=== PATIENT | female | born 1995 | race Caucasian/White ===

== ENCOUNTER 2019-09-02 14:36 | Outpatient (CLI) | payer MEDICARE, MEDICAID, SELFPAY ==
--- NOTE | 2019-09-02 | XR_ITS ---
WS: [id number] RIGHT HAND: 3 VIEW(S) TECHNIQUE: PA, oblique and lateral. HISTORY: HAND PAIN COMPARISON: None available. No acute fracture or dislocation. No soft tissue or bone abnormality. XR/XR hand RT min 3V* [id number] IMPRESSION: Normal RIGHT hand.
== END 2019-09-02 14:37 | disposition home or self-care (01) ==
LOC: RADOUTREAD 16:20
PROVIDERS: Family Provider Internal Medicine; PCP Internal Medicine; Visit Provider Nurse Practitioner
DX: M79.641 Pain in right hand (principal)

== ENCOUNTER → 2019-09-27 12:57 | Outpatient (BNVA) | payer MEDICARE, MEDICAID, SELFPAY | PROVIDERS: Family Provider Internal Medicine; PCP Internal Medicine; Visit Provider Nurse Practitioner Psychiatric/Mental Health | DX: F43.12 Post-traumatic stress disorder, chronic (principal); F90.2 Attention-deficit hyperactivity disorder, combined type; F70 Mild intellectual disabilities; F91.2 Conduct disorder, adolescent-onset type; N39.44 Nocturnal enuresis; Z86.59 Personal history of other mental and behavioral disorders | CPT/HCPCS: 99213 ==

== ENCOUNTER → 2019-11-22 08:15 | Outpatient (BNVA) | payer MEDICARE, MEDICAID, SELFPAY | PROVIDERS: Family Provider Internal Medicine; PCP Internal Medicine; Visit Provider Nurse Practitioner Psychiatric/Mental Health | DX: F43.12 Post-traumatic stress disorder, chronic (principal); F90.2 Attention-deficit hyperactivity disorder, combined type; F70 Mild intellectual disabilities; F91.2 Conduct disorder, adolescent-onset type; N39.44 Nocturnal enuresis; Z86.59 Personal history of other mental and behavioral disorders | CPT/HCPCS: 99213 ==

== ENCOUNTER → 2019-12-14 08:13 | Outpatient (BNVA) | payer MEDICARE, MEDICAID, SELFPAY | PROVIDERS: Family Provider Internal Medicine; PCP Internal Medicine; Visit Provider Nurse Practitioner Psychiatric/Mental Health | DX: F43.12 Post-traumatic stress disorder, chronic (principal); F90.2 Attention-deficit hyperactivity disorder, combined type; F70 Mild intellectual disabilities; F91.2 Conduct disorder, adolescent-onset type; N39.44 Nocturnal enuresis; Z86.59 Personal history of other mental and behavioral disorders | CPT/HCPCS: 99214 ==

== ENCOUNTER → 2020-01-04 08:28 | Outpatient (BNVA) | payer MEDICARE, MEDICAID, SELFPAY | PROVIDERS: Family Provider Internal Medicine; PCP Internal Medicine; Visit Provider Nurse Practitioner Psychiatric/Mental Health | DX: F43.12 Post-traumatic stress disorder, chronic (principal); F90.2 Attention-deficit hyperactivity disorder, combined type; F70 Mild intellectual disabilities; F91.2 Conduct disorder, adolescent-onset type; N39.44 Nocturnal enuresis; Z86.59 Personal history of other mental and behavioral disorders | CPT/HCPCS: 99214 ==

== ENCOUNTER → 2020-02-09 07:32 | Outpatient (BNVA) | payer MEDICARE, MEDICAID, SELFPAY | PROVIDERS: Family Provider Internal Medicine; PCP Internal Medicine; Visit Provider Nurse Practitioner Psychiatric/Mental Health | DX: F43.12 Post-traumatic stress disorder, chronic (principal); F90.2 Attention-deficit hyperactivity disorder, combined type; F70 Mild intellectual disabilities; F91.2 Conduct disorder, adolescent-onset type; N39.44 Nocturnal enuresis; Z86.59 Personal history of other mental and behavioral disorders | CPT/HCPCS: 99213 ==

== ENCOUNTER → 2020-03-15 07:35 | Outpatient (BNVA) | payer MEDICARE, MEDICAID, SELFPAY | PROVIDERS: Family Provider Internal Medicine; PCP Internal Medicine; Visit Provider Nurse Practitioner Psychiatric/Mental Health | DX: F43.12 Post-traumatic stress disorder, chronic (principal); F91.2 Conduct disorder, adolescent-onset type; F90.2 Attention-deficit hyperactivity disorder, combined type; F50.81 Binge eating disorder; F70 Mild intellectual disabilities; Z79.899 Other long term (current) drug therapy; N39.44 Nocturnal enuresis; Z86.59 Personal history of other mental and behavioral disorders | CPT/HCPCS: 99214 ==

== ENCOUNTER → 2020-03-16 08:25 | Outpatient (BNVA) | payer MEDICARE, MEDICAID, SELFPAY | PROVIDERS: Family Provider Internal Medicine; PCP Internal Medicine; Visit Provider Nurse Practitioner Psychiatric/Mental Health | DX: Z79.899 Other long term (current) drug therapy (principal) | CPT/HCPCS: 80053; 80061; 83036; 85025 ==

== ENCOUNTER → 2020-04-12 09:57 | Outpatient (BNVA) | payer MEDICARE, MEDICAID, SELFPAY | PROVIDERS: Family Provider Internal Medicine; PCP Internal Medicine; Visit Provider Nurse Practitioner Psychiatric/Mental Health | DX: F43.12 Post-traumatic stress disorder, chronic (principal); F50.81 Binge eating disorder; F91.2 Conduct disorder, adolescent-onset type; F90.2 Attention-deficit hyperactivity disorder, combined type; F70 Mild intellectual disabilities | CPT/HCPCS: 99214 ==

== ENCOUNTER → 2020-05-17 08:10 | Outpatient (BNVA) | payer MEDICARE, MEDICAID, SELFPAY | PROVIDERS: Family Provider Internal Medicine; PCP Internal Medicine; Visit Provider Nurse Practitioner Psychiatric/Mental Health | DX: F91.2 Conduct disorder, adolescent-onset type (principal); Z79.899 Other long term (current) drug therapy; F50.81 Binge eating disorder; F43.12 Post-traumatic stress disorder, chronic | CPT/HCPCS: 99214 ==

== ENCOUNTER → 2020-06-14 07:41 | Outpatient (BNVA) | payer MEDICARE, MEDICAID, SELFPAY | PROVIDERS: Family Provider Internal Medicine; PCP Internal Medicine; Visit Provider Nurse Practitioner Psychiatric/Mental Health | DX: F43.12 Post-traumatic stress disorder, chronic (principal); F91.2 Conduct disorder, adolescent-onset type; F50.81 Binge eating disorder; F90.2 Attention-deficit hyperactivity disorder, combined type; F70 Mild intellectual disabilities; Z79.899 Other long term (current) drug therapy; N39.44 Nocturnal enuresis; Z86.59 Personal history of other mental and behavioral disorders | CPT/HCPCS: 99214 ==

== ENCOUNTER → 2020-07-28 07:30 | Outpatient (BNVA) | payer MEDICARE, MEDICAID, SELFPAY | PROVIDERS: Family Provider Internal Medicine; PCP Internal Medicine; Visit Provider Nurse Practitioner Psychiatric/Mental Health | DX: F91.2 Conduct disorder, adolescent-onset type (principal); Z86.59 Personal history of other mental and behavioral disorders; F50.81 Binge eating disorder; F43.12 Post-traumatic stress disorder, chronic; F90.2 Attention-deficit hyperactivity disorder, combined type; F70 Mild intellectual disabilities; N39.44 Nocturnal enuresis | CPT/HCPCS: 99214 ==

== ENCOUNTER → 2020-09-07 10:54 | Outpatient (BNVA) | payer MEDICARE, MEDICAID, SELFPAY | PROVIDERS: Family Provider Internal Medicine; PCP Internal Medicine; Visit Provider Nurse Practitioner Psychiatric/Mental Health | DX: F43.12 Post-traumatic stress disorder, chronic (principal); F91.2 Conduct disorder, adolescent-onset type; Z86.59 Personal history of other mental and behavioral disorders; F50.81 Binge eating disorder; F90.2 Attention-deficit hyperactivity disorder, combined type; F70 Mild intellectual disabilities; N39.44 Nocturnal enuresis | CPT/HCPCS: 99214 ==

== ENCOUNTER → 2020-10-06 09:19 | Outpatient (BNVA) | payer MEDICARE, MEDICAID, SELFPAY | PROVIDERS: Family Provider Internal Medicine; PCP Internal Medicine; Visit Provider Nurse Practitioner Psychiatric/Mental Health | DX: F43.12 Post-traumatic stress disorder, chronic (principal); F91.2 Conduct disorder, adolescent-onset type; Z86.59 Personal history of other mental and behavioral disorders; F50.81 Binge eating disorder; F90.2 Attention-deficit hyperactivity disorder, combined type; F70 Mild intellectual disabilities; N39.44 Nocturnal enuresis | CPT/HCPCS: 99214 ==

== ENCOUNTER → 2020-11-07 08:02 | Outpatient (BNVA) | payer MEDICARE, MEDICAID, SELFPAY | PROVIDERS: Family Provider Internal Medicine; PCP Internal Medicine; Visit Provider Nurse Practitioner Psychiatric/Mental Health | DX: F43.12 Post-traumatic stress disorder, chronic (principal); F50.81 Binge eating disorder; F90.2 Attention-deficit hyperactivity disorder, combined type; F91.2 Conduct disorder, adolescent-onset type; Z86.59 Personal history of other mental and behavioral disorders; F70 Mild intellectual disabilities; N39.44 Nocturnal enuresis | CPT/HCPCS: 99214 ==

== ENCOUNTER → 2020-12-20 08:54 | Outpatient (BNVA) | payer MEDICARE, MEDICAID, SELFPAY | PROVIDERS: Family Provider Internal Medicine; PCP Internal Medicine; Visit Provider Nurse Practitioner Psychiatric/Mental Health | DX: F91.2 Conduct disorder, adolescent-onset type (principal); F43.12 Post-traumatic stress disorder, chronic; F90.2 Attention-deficit hyperactivity disorder, combined type; F50.81 Binge eating disorder; Z86.59 Personal history of other mental and behavioral disorders; F70 Mild intellectual disabilities; N39.44 Nocturnal enuresis | CPT/HCPCS: 99214 ==

== ENCOUNTER 2020-12-23 13:18 | Emergency (ER) | payer MEDICARE, MEDICAID, SELFPAY ==
[2020-12-23 13:32] VITALS: BP 139/83; PULSE 97; RESP 18; TEMP 37.2; O2SAT 97; BMI 56.4
[2020-12-23 13:52] VITALS: BP 221/136; PULSE 104; RESP 18; O2SAT 99
--- NOTE | 2020-12-23 14:07 | W.ED.GENADLT ---
HPI - General Adult General: Chief complaint: General Medical Stated complaint: high bp Time Seen by Provider: 12/23/20 14:02 Source: patient Mode of arrival: ambulatory Limitations: no limitations History of Present Illness: HPI narrative: 25-year-old female comes in today with concerns of elevated blood pressure. Patient is a resident of [facility] and it was noted that she had elevated blood pressure last night. Patient responds appropriately to questioning. Patient appears well. Patient is morbidly obese. Patient has history of psychiatric disorder. Patient states she has family history of blood pressure problems and heart disease. Patient reports some lightheadedness when she has bowel movements. Onset (ago): day(s) Review of Systems General: Reports: 10 or more systems reviewed and unremarkable except in HPI and below Card: Reports: other (High blood pressure) [facility] ED PFSH: Medical History (Updated 12/23/20 @ 15:57 by ALISIA Boothe) Attention deficit hyperactivity disorder (ADHD), predominantly hyperactive-impulsive or combined type Binge eating disorder Chronic post-traumatic stress disorder Conduct disorder, adolescent-onset type, moderate History of schizoaffective disorder Mild intellectual disabilities Nocturnal enuresis Social History (Updated 09/27/19 @ 13:40 by Kaya Alonzo RN) Smoking and tobacco status: former smoker Physical Exam Const: COMMON NORMALS: no acute distress and patient oriented x3 GENERAL APPEARANCE: cooperative HENMT: COMMON NORMALS: normocephalic and Normal external nose present HEAD & SCALP: normal to inspection and normocephalic NOSE: Normal external nose present MOUTH: Normal oral and palatal mucosa present Eye: GENERAL EYE: appearance normal, both eyes and all related structures Neck/C-Spine: COMMON NORMALS: full ROM Chest: COMMONS NORMALS: normal inspection of the chest Resp: COMMON NORMALS: normal respiratory effort EFFORT & INSPECTION: Yes able to speak in complete sentences Cardio: COMMON NORMALS: regular rate and regular rhythm RATE: regular rate RHYTHM: regular rhythm GI: COMMON NORMALS: non-tender Back/Pelvis: COMMON NORMALS: thoracic and lumbar spine normal to inspection Extremity: COMMON NORMALS: normal to inspection Neuro: COMMON NORMALS: patient oriented x3 and moves all extremities Psych: COMMON NORMALS: mental status grossly normal and cooperative Skin: COMMON NORMALS: no rashes or lesions noted GENERAL SKIN EXAM: no rashes or lesions noted Course Vital Signs: Vital signs: Vital Signs Temperature 98.9 F 12/23/20 13:32 Pulse Rate 89 12/23/20 14:27 Respiratory Rate 18 12/23/20 13:52 Blood Pressure 208/124 12/23/20 14:27 Pulse Oximetry 99 12/23/20 13:52 MDM - General Adult MDM Narrative: Medical decision making narrative: Patient comes in today for complaints of elevated blood pressure. Patient denies any other significant abnormalities. Blood pressure was high as 220s systolic. Respirations were even lungs were clear to auscultation. No edema was noted in the extremities. Differential diagnosis includes but not limited to ACS, CHF, uncontrolled hypertension, hypertensive emergency. Laboratory values are all unremarkable except for some mild elevation on the BNP. Chest x-ray was normal. EKG was normal. Reviewed exam with patient with recommendations for treatment. Patient was medicated with clonidine 0.1 mg and labetalol 100 mg in the ER both by mouth with better control of blood pressure to a with systolic of 163. We will start patient on Prinzide 06/05-1/2 mg with recommendations to follow-up with primary care in 1 week. Patient and caregiver both reported understanding. Lab Data: Labs: Lab Results 12/23/20 12/23/20 12/23/20 Range/Units 14:29 14:29 14:29 WBC 10.0 (4.0-10.0) 10^3/ uL RBC 4.71 (4.1-5.3) 10^6/u L Hgb 14.2 (11.5-15.3) g/dL Hct 43.8 (37.0-47.0) % MCV 93.0 (81-99) fL MCH 30.1 (28.0-34.0) pg MCHC 32.4 (30.0-36.0) g/dL RDW 14.5 (12.1-15.1) % Plt Count 338 (130-400) 10^3/c mm MPV 10.8 H (7.4-10.4) fL Neut % (Auto) 71.7 % Lymph % (Auto) 20.3 % Martin % (Auto) 5.4 % Eos % (Auto) 1.8 % Baso % (Auto) 0.5 % Neut # (Auto) 7.13 (1.8-7.7) 10^3/u L Lymph # (Auto) 2.0 (0.8-4.8) 10^3/u L Martin # (Auto) 0.5 (0.2-0.9) 10^3/u L Eos # (Auto) 0.2 (0.0-0.8) 10^3/u L Baso # (Auto) 0.1 (0.0-0.1) 10^3/u L Nucleated RBC % (a uto) 0 % Nucleated RBCs # 0.0 /100WBC Sodium 141 (136-145) mmol/L Potassium 3.9 (3.5-5.1) mmol/L Chloride 110 H (98-107) mmol/L Carbon Dioxide 18 L (22-29) mmol/L Anion Gap 16.9 (5-19) BUN 11 (6-20) mg/dL Creatinine 0.5 (0.5-0.9) mg/dL GFR Calculation 148.0 H (90-130) mL/min Glucose 86 (65-115) mg/dL Calculated Osmolal ity 291 (285-295) mOsm/k g Calcium 8.6 (8.5-10.5) mg/dL Total Bilirubin 0.2 (0.15-1.2) mg/dL AST 17 (0-32) U/L ALT 20 (0-33) U/L Alkaline Phosphata se 104 (35-105) IU/L Troponin T Gen 5 n g/L 6 (0-10) ng/L NT-Pro-B Natriuret Pep 147 H (0-125) pg/mL Total Protein 7.3 (6.6-8.7) g/dL Albumin 4.0 (3.5-5.2) g/dL Globulin 3.3 (1.3-4.6) g/dL Urine Color (Yellow) Urine Appearance (CLEAR) Urine pH (5-7) Ur Specific Gravit y (1.005-1.030) Urine Protein (Negative) Urine Glucose (UA) (Normal) Urine Ketones (Negative) Urine Blood (Negative) Urine Nitrate (Negative) Urine Bilirubin (Negative) Urine Urobilinogen (Negative) mg/dL Ur Leukocyte Mary ase (Negative) Urine RBC (0-2) /hpf Urine WBC (0-5) /hpf Ur Squamous Epith Cells (0-5) /hpf Amorphous Sediment Urine Bacteria (NONE) /hpf 12/23/20 Range/Units 14:44 WBC (4.0-10.0) 10^3/ uL RBC (4.1-5.3) 10^6/u L Hgb (11.5-15.3) g/dL Hct (37.0-47.0) % MCV (81-99) fL MCH (28.0-34.0) pg MCHC (30.0-36.0) g/dL RDW (12.1-15.1) % Plt Count (130-400) 10^3/c mm MPV (7.4-10.4) fL Neut % (Auto) % Lymph % (Auto) % Martin % (Auto) % Eos % (Auto) % Baso % (Auto) % Neut # (Auto) (1.8-7.7) 10^3/u L Lymph # (Auto) (0.8-4.8) 10^3/u L Martin # (Auto) (0.2-0.9) 10^3/u L Eos # (Auto) (0.0-0.8) 10^3/u L Baso # (Auto) (0.0-0.1) 10^3/u L Nucleated RBC % (a uto) % Nucleated RBCs # /100WBC Sodium (136-145) mmol/L Potassium (3.5-5.1) mmol/L Chloride (98-107) mmol/L Carbon Dioxide (22-29) mmol/L Anion Gap (5-19) BUN (6-20) mg/dL Creatinine (0.5-0.9) mg/dL GFR Calculation (90-130) mL/min Glucose (65-115) mg/dL Calculated Osmolal ity (285-295) mOsm/k g Calcium (8.5-10.5) mg/dL Total Bilirubin (0.15-1.2) mg/dL AST (0-32) U/L ALT (0-33) U/L Alkaline Phosphata se (35-105) IU/L Troponin T Gen 5 n g/L (0-10) ng/L NT-Pro-B Natriuret Pep (0-125) pg/mL Total Protein (6.6-8.7) g/dL Albumin (3.5-5.2) g/dL Globulin (1.3-4.6) g/dL Urine Color Yellow (Yellow) Urine Appearance Clear (CLEAR) Urine pH 5 (5-7) Ur Specific Gravit y 1.020 (1.005-1.030) Urine Protein Neg (Negative) Urine Glucose (UA) Norm (Normal) Urine Ketones Negative (Negative) Urine Blood Neg (Negative) Urine Nitrate Negative (Negative) Urine Bilirubin Neg (Negative) Urine Urobilinogen Norm (Negative) mg/dL Ur Leukocyte Mary ase Trace H (Negative) Urine RBC None (0-2) /hpf Urine WBC 5-10 H (0-5) /hpf Ur Squamous Epith Cells 5-10 H (0-5) /hpf Amorphous Sediment Not Reportable Urine Bacteria 1+ H (NONE) /hpf EKG Data^: EKG 1: Attestation: I personally reviewed and interpreted this EKG as follows: (1505, EKG shows normal sinus rhythm with a regular rate at 94 bpm, no ectopy, no ST elevation, no prior EKG is available for comparison.) Computer generated interpretation: Chest X-Ray 12/23/20 14:15 IMPRESSION: No acute findings. Discharge Plan Discharge Patient Disposition: Home Clinical Impression: Hypertension, uncontrolled Condition: Stable Prescriptions: New lisinopril-hydrochlorothiazide 10-12.5 mg tablet 1 tab PO DAILY Qty: 30 RF: 0 No Action bismuth subsalicylate [Pepto-Bismol] 262 mg/15 mL suspension 262 mg PO Q30M PRN (Reason: STOMACH ISSUES) RF: 0 acetaminophen [Tylenol Extra Strength] 500 mg tablet 500 mg PO QID PRN (Reason: Pain) RF: 0 cetirizine [Zyrtec] 10 mg tablet 10 mg PO DAILY PRN (Reason: ALLERGY ISSUES) RF: 0 lactulose 10 gram/15 mL (15 mL) solution 10 gm PO BID PRN (Reason: STOMACH ISSUES) RF: 0 levothyroxine [Synthroid] 112 mcg tablet 112 mcg PO DAILY@0700 RF: 0 clindamycin phosphate 1 % gel See Rx Instructions .ROUTE .COMPLEX RF: 0 Colace 100 mg Capsule 100 mg PO BID PRN (Reason: Constipation) RF: 0 fluocinonide 0.05 % solution See Rx Instructions .ROUTE .COMPLEX RF: 0 multivitamin 1 tab PO DAILY@0800 RF: 0 Prozac 40 mg capsule 40 mg PO DAILY@0800 RF: 0 desmopressin 0.2 mg tablet 0.4 mg PO BEDTIME@2100 RF: 0 Seroquel 100 mg tablet 100 mg PO BEDTIME@2100 RF: 0 Topamax 100 mg tablet 100 mg PO BEDTIME@2100 RF: 0 Discharge Orders: Discharge ED (Routine); Ordered 12/23/20 Ordered By: Cameron Gay Referrals: Leonardo Dietrich DO [Primary Care Provider] - Discharge Diet: Usual diet Discharge Activity: Increase activity as tolerated Patient Instructions: Hypertension (ED), Opioid Safety Activity Restrictions/Additional Instructions: Home and rest. Activity as tolerated. Take medication as directed. Follow-up with primary care in 1 week for recheck. Return to the ED for new concerns. Coding Level of Care Code ED Hand Method Lasting Machine Operator for Cong Fwvamsi Exam Comprehensive
--- NOTE | 2020-12-23 14:15 | ECG_ITS ---
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
--- NOTE | 2020-12-23 14:15 | XRR_ITS ---
PROCEDURE INFORMATION: Exam: XR Chest Exam date and time: 12/23/2020 2:17 PM Age: 25 years old Clinical indication: Chest pain; Type not specified; Additional info: Chest pressure, elevated blood pressure TECHNIQUE: Imaging protocol: XR of the chest. Views: 1 view. COMPARISON: No relevant prior studies available. FINDINGS: Lungs: Unremarkable. No consolidation. Pleural spaces: Unremarkable. No pleural effusion. No pneumothorax. Heart/Mediastinum: Unremarkable. No cardiomegaly. Bones/joints: No acute findings. XR/XR chest 1V portable [id number] IMPRESSION: No acute findings.
[2020-12-23] MEDS: cloNIDine 0.1 mg Tablet PO (14:25)
[2020-12-23 14:27] VITALS: BP 208/124; PULSE 89
[2020-12-23 14:57] LABS: Basophils # 0.1 10^3/uL (0.0-0.1); Basophils % 0.5 %; Eosinophils # 0.2 10^3/uL (0.0-0.8); Eosinophils % 1.8 %; Hematocrit 43.8 % (37.0-47.0); Hemoglobin 14.2 g/dL (11.5-15.3); Lymphocytes % 20.3 %; Mean Corpuscular HGB Conc 32.4 g/dL (30.0-36.0); Mean Corpuscular Hemoglobin 30.1 pg (28.0-34.0); Mean Platelet Volume 10.8 fL (7.4-10.4); Monocytes # 0.5 10^3/uL (0.2-0.9); Monocytes % 5.4 %; Neutrophils # 7.13 10^3/uL (1.8-7.7); Neutrophils % 71.7 %; Nucleated Red Blood Cells % 0 %; Platelet Count 338 10^3/cmm (130-400); Red Blood Count 4.71 10^6/uL (4.1-5.3); Red Cell Distribution Width 14.5 % (12.1-15.1)
[2020-12-23] MEDS: labetalol 200 mg Tablet 100 MG PO (14:58)
[2020-12-23 15:23] LABS: Add Urine Microscopic? YES; Bilirubin Urine Neg (Negative); Blood Urine Neg (Negative); Glucose Urine UA Norm (Normal); Ketones Urine Negative (Negative); Leukocyte Esterase Urine Trace (Negative); Nitrate Urine Negative (Negative); Protein Urine Neg (Negative); Urine Appearance Clear (CLEAR); Urine Color Yellow (Yellow); Urobilinogen Urine Norm (Negative); pH Urine 5 (5-7)
[2020-12-23 15:24] LABS: Add Urine Culture? No; Bacteria Urine 1+ /hpf
[2020-12-23 15:26] LABS: Troponin T (5th) Once 6 ng/L (0-10)
[2020-12-23 15:33] LABS: Alanine Aminotransferase 20 U/L (0-33); Alkaline Phosphatase 104 IU/L (35-105); Aspartate Amino Transferase 17 U/L (0-32); Blood Urea Nitrogen 11 mg/dL (6-20); Calcium 8.6 mg/dL (8.5-10.5); Carbon Dioxide 18 mmol/L (22-29); Chloride 110 mmol/L (98-107); Globulin 3.3 g/dL (1.3-4.6); Glucose 86 mg/dL (65-115); NT Pro B Type Natriuretic Pept 147 pg/mL (0-125); Osmolality Calculated 291 mOsm/kg (285-295); Sodium 141 mmol/L (136-145); Total Bilirubin 0.2 mg/dL (0.15-1.2); Total Protein 7.3 g/dL (6.6-8.7)
[2020-12-23 15:41] LABS: Anion Gap 16.9 (5-19); Potassium 3.9 mmol/L (3.5-5.1)
[2020-12-23] MEDS: lisinopril 10 mg Tablet PO (16:33)
[2020-12-23] MEDS: hydroCHLOROthiazide 25 mg Tablet 12.5 MG PO (16:33)
[2020-12-23 16:35] VITALS: BP 163/106; PULSE 90; RESP 16; O2SAT 96
== END 2020-12-23 16:38 | disposition home or self-care (01) ==
PROVIDERS: Emergency Provider Nurse Practitioner Family; PCP Internal Medicine
DX: I10 Essential (primary) hypertension (principal); Z87.891 Personal history of nicotine dependence
CPT/HCPCS: 36415; 71045; 80053; 81001; 83880; 84484; 85025; 93005; 99283

== ENCOUNTER 2020-12-25 15:38 | Emergency (ER) | payer MEDICARE, MEDICAID, SELFPAY ==
[2020-12-25 15:40] VITALS: BP 195/101; PULSE 121; RESP 18; O2SAT 99; BMI 56.4
--- NOTE | 2020-12-25 16:02 | ECG_ITS ---
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 Measurements Intervals [place] Rate: 121 P: 31 MT: 116 QRS: 56 QRSD: 87 T: 50 QT: 338 QTc: 481 Interpretive Statements SINUS TACHYCARDIA WITH SHORT MT INTERVAL NONSPECIFIC T-WAVE ABNORMALITY ABNORMAL RHYTHM ECG Compared to ECG 12/23/2020 14:55:34 Short MT interval now present T-wave abnormality now present Sinus rhythm no longer present Electronically Signed On 12-27-2020 8:00:12 CDT by Antione Wu M.D. [id number]
--- NOTE | 2020-12-25 16:02 | XRR_ITS ---
PROCEDURE INFORMATION: Exam: XR Chest Exam date and time: 12/25/2020 4:12 PM Age: 25 years old Clinical indication: Cough and dyspnea; Additional info: Dyspnea/cough TECHNIQUE: Imaging protocol: XR of the chest. Views: 1 view. COMPARISON: CR XR chest 1V portable [id number] 12/23/2020 2:37 PM FINDINGS: Lungs: Unremarkable. No consolidation. Pleural spaces: Unremarkable. No pleural effusion. No pneumothorax. Heart/Mediastinum: Unremarkable. No cardiomegaly. Bones/joints: No acute abnormality. XR/XR chest 1V portable [id number] IMPRESSION: No acute findings.
--- NOTE | 2020-12-25 16:10 | W.ED.GENADLT ---
HPI - General Adult General: Chief complaint: General Medical Stated complaint: ELEVATED BP Time Seen by Provider: 12/25/20 15:56 History of Present Illness: HPI narrative: 25 yo female who present to the ER with complaints of elevated BP. Pt was seen here several daysa ago and discharged home with oral antihypertensives. She has been taking them regularly,. SHe is also complaining of sore throat. She not had any fever denies any shortness of breath chest or abdominal pain or rash. Onset (ago): day(s) Severity: mild Relieving factors: none Exacerbating factors: none Associated symptoms: Reports headache(s) and vomiting; Deny confusion, cough, diaphoresis, decreased appetite, dyspnea, fevers/chills, malaise, nausea, rash, palpitations, seizures, short of breath, syncope, weakness or other Treatments prior to arrival: none Review of Systems Const: Denies: malaise or diaphoresis ENMT: Reports: throat pain; Denies: ear or mastoid pain, nasal discharge or nasal congestion Card: Denies: palpitations or syncope Resp: Denies: dyspnea GI: Reports: vomiting; Denies: nausea : Denies: flank pain, difficulty voiding, dysuria, urinary frequency or urinary urgency Skin/Breast: Denies: rash Neuro: Reports: headache(s); Denies: confusion PFSH ED PFSH: Medical History Attention deficit hyperactivity disorder (ADHD), predominantly hyperactive-impulsive or combined type Binge eating disorder Chronic post-traumatic stress disorder Conduct disorder, adolescent-onset type, moderate History of schizoaffective disorder Mild intellectual disabilities Nocturnal enuresis Social History Smoking and tobacco status: former smoker Physical Exam Const: COMMON NORMALS: no acute distress GENERAL APPEARANCE: cooperative and comfortable ORIENTATION/CONSCIOUSNESS: Yes awake, Yes oriented to person, Yes oriented to place and Yes oriented to time HENMT: COMMON NORMALS: normocephalic, atraumatic and hearing grossly normal bilaterally HEAD & SCALP: normocephalic and atraumatic Neck/C-Spine: COMMON NORMALS: no JVD Resp: COMMON NORMALS: normal respiratory effort, No retractions, No use of accessory muscles and clear to auscultation bilaterally AUSCULTATION: clear to auscultation bilaterally Cardio: COMMON NORMALS: no JVD, regular rate, regular rhythm and No murmurs present (Cardio) RATE: regular rate RHYTHM: regular rhythm GI: COMMON NORMALS: Soft to palpation and No hepatosplenomegaly present AUSCULTATION: Yes normoactive bowel sounds PALPATION: Yes Soft to palpation, No Tenderness to palpation present (GI), No Guarding due to palpation present (GI) and Yes No hepatosplenomegaly present Extremity: COMMON NORMALS: normal to inspection, capillary refill normal, no clubbing, cyanosis or edema, no calf tenderness and no pedal edema Neuro: SENSORIUM/ORIENTATION: Yes oriented to person, Yes oriented to place and Yes oriented to time Skin: COMMON NORMALS: no rashes or lesions noted GENERAL SKIN EXAM: no rashes or lesions noted Course Vital Signs: Vital signs: Vital Signs Temperature 98 F 12/25/20 19:09 Pulse Rate 101 H 12/25/20 19:09 Respiratory Rate 20 H 12/25/20 19:09 Blood Pressure 150/80 12/25/20 19:09 Pulse Oximetry 96 12/25/20 19:09 MDM - General Adult MDM Narrative: Medical decision making narrative: No erythema of the throat rapid strep test negative. Her white count is elevated. Suspect it is a viral upper respiratory infection. She did not have any nausea or vomiting while here. We will go and send her home with adjustments for antihypertensives as below follow-up with primary care within the week. Lab Data: Labs: Lab Results 12/25/20 12/25/20 12/25/20 Range/Units 17:07 17:07 18:16 WBC 15.7 H (4.0-10.0) 10^3/ uL RBC 4.44 (4.1-5.3) 10^6/u L Hgb 13.3 (11.5-15.3) g/dL Hct 42.0 (37.0-47.0) % MCV 94.6 (81-99) fL MCH 30.0 (28.0-34.0) pg MCHC 31.7 (30.0-36.0) g/dL RDW 14.7 (12.1-15.1) % Plt Count 365 (130-400) 10^3/c mm MPV 10.0 (7.4-10.4) fL Neut % (Auto) 87.8 % Lymph % (Auto) 5.8 % [place] % (Auto) 5.3 % Eos % (Auto) 0.4 % Baso % (Auto) 0.3 % Neut # (Auto) 13.81 H (1.8-7.7) 10^3/u L Lymph # (Auto) 0.9 (0.8-4.8) 10^3/u L [place] # (Auto) 0.8 (0.2-0.9) 10^3/u L Eos # (Auto) 0.1 (0.0-0.8) 10^3/u L Baso # (Auto) 0.1 (0.0-0.1) 10^3/u L Nucleated RBC % (a uto) 0 % Nucleated RBCs # 0.0 /100WBC Sodium 137 (136-145) mmol/L Potassium 3.7 (3.5-5.1) mmol/L Chloride 106 (98-107) mmol/L Carbon Dioxide 18 L (22-29) mmol/L Anion Gap 16.7 (5-19) BUN 6 (6-20) mg/dL Creatinine 0.5 (0.5-0.9) mg/dL GFR Calculation 148.0 H (90-130) mL/min Glucose 84 (65-115) mg/dL Calculated Osmolal ity 281 L (285-295) mOsm/k g Calcium 8.4 L (8.5-10.5) mg/dL Magnesium 1.9 (1.7-2.3) mg/dL Total Bilirubin 0.3 (0.15-1.2) mg/dL AST 17 (0-32) U/L ALT 21 (0-33) U/L Alkaline Phosphata se 99 (35-105) IU/L Total Protein 7.2 (6.6-8.7) g/dL Albumin 3.7 (3.5-5.2) g/dL Globulin 3.5 (1.3-4.6) g/dL Group A Strep Rapi d Negative (Negative) Discharge Plan Discharge Patient Disposition: Home Clinical Impression: HTN (hypertension), Viral pharyngitis Condition: Stable Prescriptions: New amlodipine 10 mg tablet 10 mg PO DAILY Qty: 30 RF: 0 Changed lisinopril-hydrochlorothiazide 10-12.5 mg tablet 1 tab PO BID Qty: 0 RF: 0 No Action bismuth subsalicylate [Pepto-Bismol] 262 mg/15 mL suspension 262 mg PO DAILY PRN (Reason: UPSET STOMACH) RF: 0 acetaminophen [Tylenol Extra Strength] 500 mg tablet 500 mg PO Q6H PRN (Reason: Pain) RF: 0 cetirizine [Zyrtec] 10 mg tablet 10 mg PO DAILY PRN (Reason: Allergy Symptoms) RF: 0 lactulose 10 gram/15 mL (15 mL) solution 30 ml PO DAILY PRN (Reason: Constipation) RF: 0 levothyroxine [Synthroid] 112 mcg tablet 112 mcg PO DAILY@0700 RF: 0 clindamycin phosphate 1 % gel See Rx Instructions .ROUTE .COMPLEX RF: 0 docusate sodium [Colace] 100 mg Capsule 100 mg PO BID@08,20 RF: 0 fluocinonide 0.05 % solution See Rx Instructions .ROUTE .COMPLEX RF: 0 fluoxetine [Prozac] 40 mg capsule 40 mg PO DAILY@0800 RF: 0 desmopressin 0.2 mg tablet 0.4 mg PO BEDTIME@2100 RF: 0 quetiapine [Seroquel] 100 mg tablet 100 mg PO BEDTIME@2100 RF: 0 topiramate [Topamax] 100 mg tablet 100 mg PO BEDTIME@2100 RF: 0 multivitamin Tablet 1 tab PO DAILY@08 RF: 0 ibuprofen 800 mg Tablet 800 mg PO Q6H PRN (Reason: Pain) RF: 0 medroxyprogesterone 150 mg/mL suspension 150 mg IM Q90D RF: 0 Tessalon Perles 100 mg capsule 100 mg PO TID PRN (Reason: cough) Qty: 14 RF: 0 Discharge Orders: Discharge ED (Routine); Ordered 12/25/20 Ordered By: Keith Mares Referrals: Rama Moore FNP [Primary Care Provider] - Patient Instructions: Opioid Safety Coding Level of Care Code ED Sales Vice President for Cong Coffman
[2020-12-25] MEDS: amlodipine 10 mg Tablet PO (16:47)
[2020-12-25] MEDS: metoprolol tartrate 25 mg Tablet PO (16:48)
[2020-12-25] MEDS: metoprolol tartrate 1 mg/1 mL SDV 5 mL 5 MG IV (17:13)
[2020-12-25 17:14] LABS: Basophils # 0.1 10^3/uL (0.0-0.1); Basophils % 0.3 %; Eosinophils # 0.1 10^3/uL (0.0-0.8); Eosinophils % 0.4 %; Hemoglobin 13.3 g/dL (11.5-15.3); Lymphocytes # 0.9 10^3/uL (0.8-4.8); Lymphocytes % 5.8 %; Mean Corpuscular HGB Conc 31.7 g/dL (30.0-36.0); Mean Corpuscular Volume 94.6 fL (81-99); Monocytes # 0.8 10^3/uL (0.2-0.9); Monocytes % 5.3 %; Neutrophils # 13.81 10^3/uL (1.8-7.7); Neutrophils % 87.8 %; Nucleated Red Blood Cells % 0 %; Platelet Count 365 10^3/cmm (130-400); Red Blood Count 4.44 10^6/uL (4.1-5.3); Red Cell Distribution Width 14.7 % (12.1-15.1); White Blood Count 15.7 10^3/uL (4.0-10.0)
[2020-12-25 17:31] LABS: Alanine Aminotransferase 21 U/L (0-33); Albumin Level 3.7 g/dL (3.5-5.2); Alkaline Phosphatase 99 IU/L (35-105); Aspartate Amino Transferase 17 U/L (0-32); Blood Urea Nitrogen 6 mg/dL (6-20); Calcium 8.4 mg/dL (8.5-10.5); Carbon Dioxide 18 mmol/L (22-29); Chloride 106 mmol/L (98-107); Globulin 3.5 g/dL (1.3-4.6); Glucose 84 mg/dL (65-115); Magnesium 1.9 mg/dL (1.7-2.3); Osmolality Calculated 281 mOsm/kg (285-295); Sodium 137 mmol/L (136-145); Total Bilirubin 0.3 mg/dL (0.15-1.2); Total Protein 7.2 g/dL (6.6-8.7)
[2020-12-25 17:32] LABS: Anion Gap 16.7 (5-19); Potassium 3.7 mmol/L (3.5-5.1)
[2020-12-25 18:47] LABS: Rapid Strep A Test Negative (Negative)
[2020-12-25 19:09] VITALS: BP 150/80; PULSE 101; RESP 20; TEMP 36.6; O2SAT 96
== END 2020-12-25 19:12 | disposition home or self-care (01) ==
PROVIDERS: Emergency Provider Family Medicine; PCP Nurse Practitioner Family
DX: I10 Essential (primary) hypertension (principal); J02.8 Acute pharyngitis due to other specified organisms; Z87.891 Personal history of nicotine dependence
CPT/HCPCS: 71045; 80053; 83735; 85025; 87081; 87880; 93005; 96374; 99284; J3490

== ENCOUNTER 2020-12-31 21:36 | Emergency (ER) | payer MEDICARE, MEDICAID, SELFPAY ==
[2020-12-31 21:38] VITALS: BP 180/91; PULSE 101; RESP 18; O2SAT 98; BMI 55.5
--- NOTE | 2020-12-31 21:55 | XRR_ITS ---
PROCEDURE INFORMATION: Exam: XR Chest Exam date and time: 12/31/2020 11:04 PM Age: 25 years old Clinical indication: Cough; Chest pain; Additional info: Cough x 1.5 weeks TECHNIQUE: Imaging protocol: XR of the chest. Views: 1 view. COMPARISON: CR XR chest 1V portable [id number] 12/25/2020 5:40 PM FINDINGS: Lungs: No consolidation. Pleural spaces: Unremarkable. No pleural effusion. No pneumothorax. Heart/Mediastinum: No significant cardiomegaly. Bones/joints: No acute finding. XR/XR chest 1V portable [id number] IMPRESSION: No acute cardiopulmonary finding.
--- NOTE | 2020-12-31 21:55 | W.ED.URI ---
HPI - URI/Sore Throat General: Chief Complaint: Upper Respiratory Infection Stated Complaint: chest pain Time Seen by Provider: 12/31/20 21:52 History of Present Illness: HPI Narrative: Patient arrives via ambulance with complaint of sinus congestion and pain and cough. Patient is presently on antibiotics. MD elicited complaint: cough, sore throat, nasal congestion and sinus pain Onset (ago): day(s) Consistency: constant and progressively worsening Severity: moderate Able to tolerate fluids by mouth: Yes Exacerbating factors: nothing Relieving factors: nothing Associated symptoms: Reports nasal congestion and sinus pain; Deny abdominal pain, chills, chest pain, fever(s), headache(s), nausea or vomiting Review of Systems Const: Denies: fever(s), chills or body aches Eyes: Denies: change in vision or blurry vision ENMT: Reports: throat pain, nasal congestion and sinus pain Card: Denies: chest pain or dyspnea on exertion Resp: Reports: non-productive cough, chest congestion and other (Hurts to take in deep breath); Denies: dyspnea or productive cough GI: Denies: abdominal pain, nausea or vomiting Musc: Denies: extremity pain Skin/Breast: Denies: rash Neuro: Denies: headache(s) Psych: Denies: anxiety or depression Baron/Lymph: Denies: easy bruising PFSH ED PFSH: Medical History (Updated 12/31/20 @ 00:01 by ) Attention deficit hyperactivity disorder (ADHD), predominantly hyperactive-impulsive or combined type Binge eating disorder Chronic post-traumatic stress disorder Conduct disorder, adolescent-onset type, moderate History of schizoaffective disorder Mild intellectual disabilities Nocturnal enuresis Social History (Updated 09/27/19 @ 13:40 by Kaya Alonzo, BECKY) Smoking and tobacco status: former smoker Physical Exam Const: COMMON NORMALS: no acute distress, average body habitus and patient oriented x3 HENMT: COMMON NORMALS: normocephalic HEAD & SCALP: normal to inspection and normocephalic FACE & SINUS: normal facial exam Eye: COMMON NORMALS: conjunctivae normal GENERAL EYE: appearance normal, both eyes and all related structures CONJUNCTIVA: Yes conjunctivae normal Neck/C-Spine: COMMON NORMALS: no JVD Chest: COMMONS NORMALS: normal inspection of the chest Resp: COMMON NORMALS: normal respiratory effort, No retractions (Barky cough) and clear to auscultation bilaterally AUSCULTATION: clear to auscultation bilaterally Cardio: COMMON NORMALS: no JVD, regular rate and regular rhythm RATE: regular rate RHYTHM: regular rhythm GI: COMMON NORMALS: Normal to inspection, nondistended, normoactive bowel sounds present Extremity: COMMON NORMALS: normal to inspection and full ROM Neuro: COMMON NORMALS: patient oriented x3 Course Vital Signs: Vital signs: Vital Signs Pulse Rate 101 H 12/31/20 21:38 Respiratory Rate 18 12/31/20 21:38 Blood Pressure 180/91 12/31/20 21:38 Pulse Oximetry 98 12/31/20 21:38 Discharge Plan Discharge Prescriptions: No Action bismuth subsalicylate [Pepto-Bismol] 262 mg/15 mL suspension 262 mg PO DAILY PRN (Reason: UPSET STOMACH) RF: 0 acetaminophen [Tylenol Extra Strength] 500 mg tablet 500 mg PO Q6H PRN (Reason: Pain) RF: 0 cetirizine [Zyrtec] 10 mg tablet 10 mg PO DAILY PRN (Reason: Allergy Symptoms) RF: 0 lactulose 10 gram/15 mL (15 mL) solution 30 ml PO DAILY PRN (Reason: Constipation) RF: 0 levothyroxine [Synthroid] 112 mcg tablet 112 mcg PO DAILY@0700 RF: 0 clindamycin phosphate 1 % gel See Rx Instructions .ROUTE .COMPLEX RF: 0 docusate sodium [Colace] 100 mg Capsule 100 mg PO BID@08,20 RF: 0 fluocinonide 0.05 % solution See Rx Instructions .ROUTE .COMPLEX RF: 0 fluoxetine [Prozac] 40 mg capsule 40 mg PO DAILY@0800 RF: 0 desmopressin 0.2 mg tablet 0.4 mg PO BEDTIME@2100 RF: 0 quetiapine [Seroquel] 100 mg tablet 100 mg PO BEDTIME@2100 RF: 0 topiramate [Topamax] 100 mg tablet 100 mg PO BEDTIME@2100 RF: 0 multivitamin Tablet 1 tab PO DAILY@08 RF: 0 ibuprofen 800 mg Tablet 800 mg PO Q6H PRN (Reason: Pain) RF: 0 medroxyprogesterone 150 mg/mL suspension 150 mg IM Q90D RF: 0 amlodipine 10 mg tablet 10 mg PO DAILY Qty: 30 RF: 0 lisinopril-hydrochlorothiazide 10-12.5 mg tablet 1 tab PO BID Qty: 0 RF: 0 Coding Level of Care Code ED Image Processing Engineer for Cong Coffman
[2020-12-31 22:06] VITALS: BP 158/92; PULSE 98; RESP 17; O2SAT 98
[2020-12-31] MEDS: benzonatate 100 mg Capsule 200 MG PO (22:09)
[2020-12-31] MEDS: methylPREDNISolone (DEPO) 40 mg/mL INJ 1 mL IM (22:24)
[2020-12-31 23:15] VITALS: BP 141/95; PULSE 100; RESP 18; TEMP 36.7; O2SAT 97
== END 2020-12-31 23:21 | disposition home or self-care (01) ==
PROVIDERS: Emergency Provider Nurse Practitioner Family; PCP Nurse Practitioner Family
DX: R05 Cough (principal); Z87.891 Personal history of nicotine dependence
CPT/HCPCS: 71045; 96372; 99283; J1030

== ENCOUNTER → 2021-02-14 08:35 | Outpatient (BNVA) | payer MEDICARE, MEDICAID, SELFPAY | PROVIDERS: PCP Nurse Practitioner Family; Visit Provider Nurse Practitioner Psychiatric/Mental Health | DX: F91.2 Conduct disorder, adolescent-onset type (principal); Z86.59 Personal history of other mental and behavioral disorders; F50.81 Binge eating disorder; F43.12 Post-traumatic stress disorder, chronic; F90.2 Attention-deficit hyperactivity disorder, combined type; F70 Mild intellectual disabilities; N39.44 Nocturnal enuresis | CPT/HCPCS: 99214 ==

== ENCOUNTER 2021-03-13 16:18 | Emergency (ER) | payer MEDICARE, MEDICAID, SELFPAY ==
[2021-03-13 16:35] VITALS: BP 145/78; PULSE 108; RESP 18; TEMP 38.1; O2SAT 95; BMI 54.8
--- NOTE | 2021-03-13 17:18 | ED_ITS ---
HPI - SOB/Dyspnea General: Chief Complaint: Shortness of Breath/Dyspnea Stated Complaint: COVID +, N/V,COUGH Time Seen by Provider: 03/13/21 17:18 History of Present Illness: HPI Narrative: 25-year-old female comes in today with complaints of cough and congestion for 8 days. Patient states that she has been unable to eat anything since of last week. Patient reports that she has a persistent cough. Patient has used some benzonatate capsules with minimal relief. Patient reports nausea and poor oral intake. Patient is morbidly obese. Patient also has a history of hypertension which she takes amlodipine. Patient tested positive for COVID-19 on March 06 at outside clinic. MD elicited complaint: cough and pain with inspiration Onset (ago): day(s) Context: recent illness Timing: intermittent Review of Systems General: Reports: 10 or more systems reviewed and unremarkable except in HPI and below Resp: Reports: dyspnea and productive cough PFSH ED PFSH: Medical History Attention deficit hyperactivity disorder (ADHD), predominantly hyperactive- impulsive or combined type Binge eating disorder Chronic post-traumatic stress disorder Conduct disorder, adolescent-onset type, moderate History of schizoaffective disorder Mild intellectual disabilities Nocturnal enuresis Social History Smoking and tobacco status: former smoker Physical Exam Const: COMMON NORMALS: no acute distress and patient oriented x3 GENERAL APPEARANCE: cooperative HENMT: COMMON NORMALS: normocephalic and Normal external nose present HEAD & SCALP: normal to inspection and normocephalic NOSE: Normal external nose present MOUTH: Normal oral and palatal mucosa present Eye: GENERAL EYE: appearance normal, both eyes and all related structures Neck/C-Spine: COMMON NORMALS: full ROM Lymph: LYMPHATIC: no lymphadenopathy noted Chest: COMMONS NORMALS: normal inspection of the chest Resp: COMMON NORMALS: normal respiratory effort EFFORT & INSPECTION: Yes able to speak in complete sentences AUSCULTATION: diminished lung sounds Cardio: COMMON NORMALS: regular rate and regular rhythm RATE: regular rate RHYTHM: regular rhythm GI: COMMON NORMALS: non-tender : COMMON NORMALS: Yes no CVA tenderness BLADDER/KIDNEY EXAM: Yes no CVA tenderness Back/Pelvis: COMMON NORMALS: no CVA tenderness and thoracic and lumbar spine normal to inspection Extremity: COMMON NORMALS: normal to inspection Neuro: COMMON NORMALS: patient oriented x3 and moves all extremities Psych: COMMON NORMALS: mental status grossly normal and cooperative Skin: COMMON NORMALS: no rashes or lesions noted GENERAL SKIN EXAM: no rashes or lesions noted Course Vital Signs: Vital signs: Vital Signs Temperature 100.2 F H 03/13/21 18:12 Pulse Rate 126 H 03/13/21 20:20 Respiratory Rate 22 H 03/13/21 20:15 Blood Pressure 132/75 03/13/21 18:12 Pulse Oximetry 96 03/13/21 20:15 MDM - SOB/Dyspnea MDM Narrative: Medical decision making narrative: 25-year-old female comes in today with complaints of cough and congestion with occasional episodes of emesis. Patient appears mildly unwell but not toxic. Lung sounds are decreased in the bases. Patient is morbidly obese. Vital signs showed a mild increase in pulse rate and a temperature of 100.2. Chest x-ray had some bilateral lower field infiltrates. Patient's pulse oxygen was 96% on room air. Believe patient probably has COVID-19 pneumonia as reported by a positive Covid test on the . Patient was recommended to return for monoclonal antibodies. Patient was also given a dose of dexamethasone and started on albuterol inhaler. Encourage patient drink plenty of fluids and follow-up with primary care for further instructions or return to the ER for worsening symptoms. Discharge Plan Discharge Patient Disposition: Home Clinical Impression: Pneumonia due to 2019-nCoV Condition: Stable Prescriptions: New albuterol sulfate 90 mcg/actuation HFA aerosol inhaler 2 inh inhalation Q4H PRN (Reason: shortness of breath or wheezing) Qty: 8.5 RF: 0 dexamethasone 6 mg tablet 6 mg PO DAILY Qty: 5 RF: 0 ondansetron 4 mg tablet,disintegrating 4 mg PO Q8H PRN (Reason: nausea and vomiting) Qty: 7 RF: 0 No Action fluoxetine [Prozac] 40 mg capsule 40 mg PO QAM Qty: 90 RF: 2 quetiapine [Seroquel] 100 mg tablet 100 mg PO .bedtime Qty: 90 RF: 2 topiramate [Topamax] 100 mg tablet 100 mg PO .9 pm Qty: 90 RF: 2 desmopressin 0.2 mg tablet 0.4 mg PO .9 pm Qty: 180 RF: 2 bismuth subsalicylate [Pepto-Bismol] 262 mg/15 mL suspension 262 mg PO DAILY PRN (Reason: UPSET STOMACH) RF: 0 acetaminophen [Tylenol Extra Strength] 500 mg tablet 500 mg PO Q6H PRN (Reason: Pain) RF: 0 cetirizine [Zyrtec] 10 mg tablet 10 mg PO DAILY PRN (Reason: Allergy Symptoms) RF: 0 lactulose 10 gram/15 mL (15 mL) solution 30 ml PO DAILY PRN (Reason: Constipation) RF: 0 levothyroxine [Synthroid] 112 mcg tablet 112 mcg PO DAILY@0700 RF: 0 clindamycin phosphate 1 % gel See Rx Instructions .ROUTE .COMPLEX RF: 0 docusate sodium [Colace] 100 mg Capsule 100 mg PO BID@08,20 RF: 0 fluocinonide 0.05 % solution See Rx Instructions .ROUTE .COMPLEX RF: 0 multivitamin Tablet 1 tab PO DAILY@08 RF: 0 ibuprofen 800 mg Tablet 800 mg PO Q6H PRN (Reason: Pain) RF: 0 medroxyprogesterone 150 mg/mL suspension 150 mg IM Q90D RF: 0 amlodipine 10 mg tablet 10 mg PO DAILY Qty: 30 RF: 0 lisinopril-hydrochlorothiazide 10-12.5 mg tablet 1 tab PO BID Qty: 0 RF: 0 Tessalon Perles 100 mg capsule 100 mg PO TID PRN (Reason: cough) Qty: 14 RF: 0 Discharge Orders: Discharge ED (Routine); Ordered 03/13/21 Ordered By: Cameron Gay Referrals: Rama Moore FNP [Primary Care Provider] - Discharge Diet: Usual diet Discharge Activity: Increase activity as tolerated Patient Instructions: Viral Pneumonia (ED), Opioid Safety Activity Restrictions/Additional Instructions: Drink plenty of fluids. Use acetaminophen and ibuprofen for pain and fever. Activity as tolerated. Take dexamethasone tablets daily for the next 5 days. Use albuterol inhaler 2 puffs every 4 hours as needed for shortness of breath and cough and congestion. Monitor oxygen level with pulse oximetry. If oxygen level gets below 90% and does not recover with movement, deep breaths or worsens you should be reevaluated in the emergency department. Follow-up with primary care as needed. Return to the emergency department for new concerns. 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
--- NOTE | 2021-03-13 17:19 | XRR_ITS ---
PROCEDURE INFORMATION: Exam: XR Chest Exam date and time: 03/13/2021 5:19 PM Age: 25 years old Clinical indication: Cough and dyspnea and shortness of breath and other: N/v; Patient HX: Ex smoker, SOB, cough, n/v, covid + since 03/06/2021; Additional info: Short of breath TECHNIQUE: Imaging protocol: XR of the chest. Views: 1 view. Total images: 1 COMPARISON: CR XR chest 1V portable [id number] 12/31/2020 10:54 PM FINDINGS: Lungs: Potential very subtle focus of ground-glass interstitial lung disease right mid lung which could reflect active interstitial pneumonitis. Pleural spaces: Unremarkable. No pleural effusion. No pneumothorax. Heart/Mediastinum: Unremarkable. No cardiomegaly. Bones/joints: Unremarkable. Other findings: Obesity. XR/XR chest 1V portable [id number] IMPRESSION: Potential very subtle focus of ground-glass interstitial lung disease right mid lung which could reflect active interstitial pneumonitis.
[2021-03-13 18:12] VITALS: BP 132/75; PULSE 111; RESP 20; TEMP 37.9; O2SAT 94
[2021-03-13] MEDS: ondansetron 4 MG Tablet PO (18:12)
[2021-03-13] MEDS: dexamethasone 10 mg/mL INJ IM (18:12)
[2021-03-13] MEDS: promethazine 25 mg/mL SDV 1 mL IM (20:10)
[2021-03-13 20:15] VITALS: PULSE 124; RESP 22; O2SAT 96
[2021-03-13] MEDS: albuterol 8 gm MDI 2 PUFF INHALATION (20:15)
[2021-03-13 20:20] VITALS: PULSE 126
[2021-03-13 20:40] VITALS: BP 138/80; PULSE 120; RESP 20; O2SAT 96
--- NOTE | 2021-03-15 10:06 | DCPLANNER ---
mail manager had order to schedule the monoclonal antibody infusion. mail manager faxed order to centralized scheduling so that it could be scheduled.
== END 2021-03-13 20:41 | disposition home or self-care (01) ==
PROVIDERS: Emergency Provider Nurse Practitioner Family; PCP Nurse Practitioner Family
DX: U07.1 COVID-19 (principal); J12.82 Pneumonia due to coronavirus disease 2019; I10 Essential (primary) hypertension; E66.01 Morbid (severe) obesity due to excess calories; Z68.43 Body mass index [BMI] 50.0-59.9, adult; Z87.891 Personal history of nicotine dependence
CPT/HCPCS: 71045; 94640; 96372; 99283; J1100; J2550; J3535; Q0162

== ENCOUNTER → 2021-04-11 09:47 | Outpatient (BNVA) | payer MEDICARE, MEDICAID, SELFPAY | PROVIDERS: PCP Nurse Practitioner Family; Visit Provider Nurse Practitioner Psychiatric/Mental Health | DX: F91.2 Conduct disorder, adolescent-onset type (principal); F50.81 Binge eating disorder; F90.2 Attention-deficit hyperactivity disorder, combined type; F43.12 Post-traumatic stress disorder, chronic; F70 Mild intellectual disabilities; Z79.899 Other long term (current) drug therapy; Z03.89 Encounter for observation for other suspected diseases and conditions ruled out; Z86.59 Personal history of other mental and behavioral disorders; N39.44 Nocturnal enuresis | CPT/HCPCS: 99214 ==

== ENCOUNTER → 2021-06-06 07:07 | Outpatient (BNVA) | payer MEDICARE, MEDICAID, SELFPAY | PROVIDERS: PCP Nurse Practitioner Family; Visit Provider Nurse Practitioner Psychiatric/Mental Health | DX: F91.2 Conduct disorder, adolescent-onset type (principal); F43.12 Post-traumatic stress disorder, chronic; F90.2 Attention-deficit hyperactivity disorder, combined type; F50.81 Binge eating disorder; F70 Mild intellectual disabilities; Z79.899 Other long term (current) drug therapy; Z03.89 Encounter for observation for other suspected diseases and conditions ruled out; Z86.59 Personal history of other mental and behavioral disorders; N39.44 Nocturnal enuresis | CPT/HCPCS: 99214 ==

== ENCOUNTER → 2021-09-20 07:23 | Outpatient (BNVA) | payer MEDICARE, MEDICAID, SELFPAY | PROVIDERS: PCP Nurse Practitioner Family; Visit Provider Nurse Practitioner Psychiatric/Mental Health | DX: F91.2 Conduct disorder, adolescent-onset type (principal); F50.81 Binge eating disorder; F43.12 Post-traumatic stress disorder, chronic; F90.2 Attention-deficit hyperactivity disorder, combined type; Z86.59 Personal history of other mental and behavioral disorders; F70 Mild intellectual disabilities; N39.44 Nocturnal enuresis; Z79.899 Other long term (current) drug therapy | CPT/HCPCS: 99214 ==

== ENCOUNTER → 2021-12-06 10:34 | Outpatient (BNVA) | payer MEDICARE, MEDICAID, SELFPAY | PROVIDERS: PCP Nurse Practitioner Family; Visit Provider Internal Medicine Critical Care Medicine | DX: G47.10 Hypersomnia, unspecified (principal); E66.01 Morbid (severe) obesity due to excess calories; J12.82 Pneumonia due to coronavirus disease 2019; R05.3 Chronic cough; U09.9 Post COVID-19 condition, unspecified; F17.210 Nicotine dependence, cigarettes, uncomplicated | CPT/HCPCS: 99214 ==

== ENCOUNTER → 2021-12-18 07:48 | Outpatient (BNVA) | payer MEDICARE, MEDICAID, SELFPAY | PROVIDERS: PCP Nurse Practitioner Family; Visit Provider Nurse Practitioner Psychiatric/Mental Health | DX: F91.2 Conduct disorder, adolescent-onset type (principal); F43.12 Post-traumatic stress disorder, chronic; F90.2 Attention-deficit hyperactivity disorder, combined type; F50.81 Binge eating disorder; Z86.59 Personal history of other mental and behavioral disorders; F70 Mild intellectual disabilities; N39.44 Nocturnal enuresis | CPT/HCPCS: 99214 ==

== ENCOUNTER → 2022-01-25 08:07 | Outpatient (BNVA) | payer MEDICARE, MEDICAID, SELFPAY | PROVIDERS: PCP Nurse Practitioner Family; Visit Provider Nurse Practitioner Psychiatric/Mental Health | DX: F43.12 Post-traumatic stress disorder, chronic (principal); F91.2 Conduct disorder, adolescent-onset type; F90.2 Attention-deficit hyperactivity disorder, combined type; Z86.59 Personal history of other mental and behavioral disorders; F50.81 Binge eating disorder; F70 Mild intellectual disabilities; N39.44 Nocturnal enuresis; Z79.899 Other long term (current) drug therapy | CPT/HCPCS: 80053; 80061; 83036; 99214 ==

== ENCOUNTER 2022-01-25 09:10 | Outpatient (CLI) | payer MEDICARE, MEDICAID, SELFPAY ==
[2022-01-25 10:13] LABS: Alanine Aminotransferase 21 U/L (0-33); Albumin Level 4.3 g/dL (3.5-5.2); Alkaline Phosphatase 109 IU/L (35-105); Anion Gap 14.3 (5-19); Aspartate Amino Transferase 19 U/L (0-32); Blood Urea Nitrogen 16 mg/dL (6-20); Calcium 9.1 mg/dL (8.5-10.5); Carbon Dioxide 24 mmol/L (22-29); Chloride 103 mmol/L (98-107); Chol HDL Ratio 3.41 mg/dL (0.0-4.40); Cholesterol 150 mg/dL (0-200); Globulin 2.9 g/dL (1.3-4.6); Glomerular Filtration Rate 85.4 mL/min (90-130); Glucose 98 mg/dL (65-115); HDL Cholesterol 44 mg/dL (60-100); LDL Cholesterol Calculated 89 mg/dL (50-129); LDL HDL Ratio 2.02 RATIO (0.00-3.22); Osmolality Calculated 287 mOsm/kg (285-295); Potassium 3.3 mmol/L (3.5-5.1); Sodium 138 mmol/L (136-145); Total Bilirubin 0.2 mg/dL (0.15-1.2); Total Protein 7.2 g/dL (6.6-8.7); Triglycerides 85 mg/dL (0-150)
[2022-01-25 10:53] LABS: Estmated Average Glucose 117; Hemoglobin A1C 5.7 % (4.0-6.0)
== END 2022-01-25 09:11 | disposition home or self-care (01) ==
LOC: LAB 09:13
PROVIDERS: PCP Nurse Practitioner Family; Visit Provider Nurse Practitioner Psychiatric/Mental Health
DX: Z79.899 Other long term (current) drug therapy (principal)
CPT/HCPCS: 80053; 80061; 83036

== ENCOUNTER 2022-02-16 17:39 | Emergency (ER) | payer MEDICARE, MEDICAID, SELFPAY ==
[2022-02-16 18:45] VITALS: BP 121/78; PULSE 79; RESP 18; TEMP 36.4; O2SAT 95; BMI 50.6
[2022-02-16 21:38] VITALS: BP 130/85; PULSE 81; RESP 16; O2SAT 98
--- NOTE | 2022-02-16 21:48 | XRR_ITS ---
PROCEDURE INFORMATION: Exam: XR Chest Exam date and time: 02/16/2022 9:57 PM Age: 26 years old Clinical indication: Cough and shortness of breath; Additional info: Cough SOB TECHNIQUE: Imaging protocol: Radiologic exam of the chest. Views: 1 view. COMPARISON: CR XR chest 1V portable [id number] 03/13/2021 7:31 PM FINDINGS: Lungs: There are some hazy and strandy opacities present in the left mid lower hemithorax, findings compatible with atelectasis versus infiltrates and pneumonia. Pleural spaces: Unremarkable. No pleural effusion. No pneumothorax. Heart/Mediastinum: Unremarkable. No cardiomegaly. Bones/joints: Unremarkable. XR/XR chest 1V portable [id number] IMPRESSION: Hazy and strandy opacities in the left mid and lower hemithorax may represent atelectasis although infiltrates and pneumonia cannot be excluded.
[2022-02-16] MEDS: quetiapine 100 mg Tablet PO (23:14)
[2022-02-16 23:25] VITALS: BP 153/89; PULSE 94; O2SAT 96
--- NOTE | 2022-02-16 23:36 | PC.NURSE ---
Did not give lisinopril. Pressure was 131/81. Discussed with physician and he agreed to hold medication.
[2022-02-16 23:37] VITALS: BP 131/80; PULSE 90; RESP 16; TEMP 36.4; O2SAT 95
[2022-02-16 23:38] VITALS: BP 131/80; PULSE 90; RESP 16; TEMP 36.4; O2SAT 95
--- NOTE | 2022-02-17 15:22 | ED_ITS ---
HPI - General Adult General: Chief complaint: General Medical Stated complaint: HYPOTENSION Time Seen by Provider: 02/16/22 21:24 Source: patient and other History of Present Illness: 26 year old female presenting from a correction environment. Evidently, she had low blood pressures there on checking. She was asymptomatic with these. The machine there showed blood pressures in the 80s over 40s. On arrival here, her blood pressure seems normal. Again she is asymptomatic. She has taken her medication as prescribed. She did not have her nighttime dosage. Onset (ago): minute(s) Radiation: non-radiation Quality: other Pain Consistency: other Relieving factors: other Associated symptoms: Deny chest pain, dyspnea, headache(s) or palpitations Review of Systems Const: Denies: fever(s) or chills Eyes: Denies: change in vision Card: Denies: chest pain or palpitations Resp: Denies: dyspnea Neuro: Denies: headache(s), numbness in extremities or weakness in extremities PFS ED PFSH: Medical History Attention deficit hyperactivity disorder (ADHD), predominantly hyperactive- impulsive or combined type Binge eating disorder Chronic post-traumatic stress disorder Conduct disorder, adolescent-onset type, moderate History of schizoaffective disorder Mild intellectual disabilities Nocturnal enuresis Psychiatric care Family History Mother CAD (coronary artery disease) Diabetes Sister CAD (coronary artery disease) Diabetes Denies family history of Chronic kidney disease (CKD) Cancer Social History Smoking and tobacco status: current every day smoker (1.5 pack per week) cigarettes Packs smoked per day: 1 Years cigarettes smoked: 10 and e-cigarettes Alcohol intake: never Physical Exam Const: COMMON NORMALS: no acute distress NUTRITIONAL APPEARANCE: obese ORIENTATION/CONSCIOUSNESS: Yes awake, Yes oriented to person, Yes oriented to place, Yes oriented to time and Yes confused HENMT: COMMON NORMALS: normocephalic, atraumatic and Normal external nose present HEAD & SCALP: normocephalic and atraumatic FACE & SINUS: normal facial exam NOSE: Normal external nose present Eye: COMMON NORMALS: Equal, round and reactive pupils present and EOMs intact bilaterally PUPIL: Yes Equal, round and reactive pupils present Neck/C-Spine: GENERAL: Yes tracheal deviation Chest: COMMONS NORMALS: normal inspection of the chest Resp: COMMON NORMALS: normal respiratory effort, No retractions, No use of accessory muscles and clear to auscultation bilaterally AUSCULTATION: clear to auscultation bilaterally Cardio: COMMON NORMALS: regular rate, regular rhythm and Peripheral pulses 2+ throughout RATE: regular rate RHYTHM: regular rhythm PERIPHERAL PULSES: Peripheral pulses 2+ throughout GI: COMMON NORMALS: Normal to inspection, nondistended, normoactive bowel sounds present Extremity: COMMON NORMALS: no pedal edema Neuro: ANATOLY COMA SCALE: document [facility] findings [place] coma scale eye opening: Spontaneous Anatoly coma scale verbal response: Orientated Anatoly coma scale motor response: Obey commands [place] coma scale total score: 15 SENSORIUM/ORIENTATION: Yes oriented to person, Yes oriented to place and Yes oriented to time Course Vital Signs: Vital signs: Vital Signs Temperature 97.5 F L 02/16/22 23:38 Pulse Rate 90 02/16/22 23:38 Respiratory Rate 16 02/16/22 23:38 Blood Pressure 131/80 02/16/22 23:38 Pulse Oximetry 95 02/16/22 23:38 [facility] - General Adult Medical Decision Making Blood pressures have been normal here. The patient is asymptomatic. EKG and chest X ray are normal. she has missed her nighttime medication, and will be given her dose of Seroquel here. As she remains normotensive, blood pressure medication will be skipped, to resume tomorrow. Lab Data Radiology Impressions Chest X-Ray 02/16/22 21:48 IMPRESSION: Hazy and strandy opacities in the left mid and lower hemithorax may represent atelectasis although infiltrates and pneumonia cannot be excluded. Discharge Plan Discharge Patient Disposition: Home Clinical Impression: Acute hypotension Condition: Stable Prescriptions: No Action benzonatate [Tessalon Perles] 100 mg capsule 100 mg PO TID PRN (Reason: cough) 30 Days Qty: 90 3RF rosuvastatin 10 mg tablet 10 mg PO DAILY 0RF fluoxetine [Prozac] 40 mg capsule 40 mg PO QAM Qty: 90 2RF Rx Instructions: Take one capsule in morning quetiapine [Seroquel] 25 mg tablet 25 mg PO BID PRN (Reason: anxiety/agitation) Qty: 60 3RF Rx Instructions: Take one tablet twice per day as needed for anxiety/agitation bismuth subsalicylate [Pepto-Bismol] 262 mg/15 mL suspension 262 mg PO DAILY PRN (Reason: UPSET STOMACH) 0RF acetaminophen [Tylenol Extra Strength] 500 mg tablet 500 mg PO Q6H PRN (Reason: Pain) 0RF cetirizine [Zyrtec] 10 mg tablet 10 mg PO DAILY PRN (Reason: Allergy Symptoms) 0RF lactulose 10 gram/15 mL (15 mL) solution 30 ml PO DAILY PRN (Reason: Constipation) 0RF levothyroxine [Synthroid] 112 mcg tablet 112 mcg PO DAILY@0700 0RF quetiapine [Seroquel] 100 mg tablet 100 mg PO .7:30 pm Qty: 90 2RF Rx Instructions: Take one tablet at 7:30 pm topiramate [Topamax] 100 mg tablet 100 mg PO .7:30 pm Qty: 90 2RF Rx Instructions: Take one tablet at 7:30 pm desmopressin 0.2 mg tablet 0.4 mg PO .7:30 pm Qty: 180 2RF Rx Instructions: Take two tablets at 7:30 pm clindamycin phosphate 1 % gel See Rx Instructions .ROUTE .COMPLEX 0RF Rx Instructions: APPLY TOPICALLY TO FACE AND TRUNK ONCE DAILY DIRECTED. docusate sodium [Colace] 100 mg Capsule 100 mg PO BID@08,20 0RF fluocinonide 0.05 % solution See Rx Instructions .ROUTE .COMPLEX 0RF Rx Instructions: APPLY 10-15 DROPS TO SCALY LESIONS ON THE SCALP DAILY@08:00 albuterol sulfate 90 mcg/actuation HFA aerosol inhaler 2 inh inhalation Q4H PRN (Reason: shortness of breath or wheezing) Qty: 8.5 0RF ondansetron 4 mg tablet,disintegrating 4 mg PO Q8H PRN (Reason: nausea and vomiting) Qty: 7 0RF multivitamin Tablet 1 tab PO DAILY@08 0RF ibuprofen 800 mg Tablet 800 mg PO Q6H PRN (Reason: Pain) 0RF amlodipine 10 mg tablet 10 mg PO DAILY Qty: 30 0RF lisinopril-hydrochlorothiazide 10-12.5 mg tablet 1 tab PO BID Qty: 0 0RF Discharge Orders: Discharge ED (Routine); Ordered 02/16/22 Ordered By: Bk Urban Activity Restrictions/Additional Instructions: Continue your antibiotics. Check blood pressures twice daily for the next 48 hours. Resume your regular medications tomorrow morning. Return for any symptoms such as shortness of breath, lethargy, chest discomfort, any other concerns. Coding Level of Care Code ED Allopathic Doctor for Cong Co[place]man
== END 2022-02-16 23:39 | disposition home or self-care (01) ==
PROVIDERS: Emergency Provider Emergency Medicine
DX: I95.9 Hypotension, unspecified (principal); F17.210 Nicotine dependence, cigarettes, uncomplicated
CPT/HCPCS: 71045; 99283

== ENCOUNTER → 2022-05-29 10:26 | Outpatient (BNVA) | payer MEDICARE, MEDICAID, SELFPAY | PROVIDERS: PCP Nurse Practitioner Family; Visit Provider Internal Medicine Cardiovascular Disease | DX: R00.2 Palpitations (principal) | CPT/HCPCS: 93225 ==

== ENCOUNTER → 2022-06-06 10:07 | Outpatient (BNVA) | payer MEDICARE, MEDICAID, SELFPAY | PROVIDERS: PCP Nurse Practitioner Family; Visit Provider Internal Medicine Critical Care Medicine | DX: R05.3 Chronic cough (principal); E66.01 Morbid (severe) obesity due to excess calories; U09.9 Post COVID-19 condition, unspecified; Z68.43 Body mass index [BMI] 50.0-59.9, adult; F17.210 Nicotine dependence, cigarettes, uncomplicated; F17.290 Nicotine dependence, other tobacco product, uncomplicated; R53.83 Other fatigue | CPT/HCPCS: 99213 ==

== ENCOUNTER → 2022-06-29 10:45 | Outpatient (BNVA) | payer MEDICARE, MEDICAID, SELFPAY | PROVIDERS: PCP Nurse Practitioner Family; Visit Provider Nurse Practitioner Family | DX: M79.631 Pain in right forearm (principal); W19.XXXA Unspecified fall, initial encounter | CPT/HCPCS: 73090 ==

== ENCOUNTER 2022-08-25 08:52 | Emergency (ER) | payer MEDICARE, MEDICAID, SELFPAY ==
[2022-08-25 09:01] VITALS: BP 104/69; PULSE 74; RESP 16; TEMP 36.1; O2SAT 96
--- NOTE | 2022-08-25 09:55 | ED_ITS ---
HPI - General Adult General: Chief complaint: General Medical Stated complaint: Given wrong medication Time Seen by Provider: 08/25/22 09:35 Source: patient and other (manufacturing plant technician) Mode of arrival: ambulatory Limitations: no limitations History of Present Illness: This patient was transported to the emergency department accompanied by her manufacturing plant technician. Apparently her manufacturing plant technician administered some incorrect medications to this patient this morning during her morning medication rounds. She is here to ensure that there is no untoward effects and to have this process documented. The patient denies any complaints specifically just she denies any lightheadedness, weakness, palpitations nausea vomiting etc. Associated symptoms: Deny chest pain, confusion, dyspnea, headache(s), nausea, rash, palpitations, syncope or vomiting Review of Systems Const: Denies: fever(s), chills or body aches Eyes: Denies: change in vision ENMT: Denies: throat pain or odynophagia Card: Denies: chest pain, palpitations, edema or syncope Resp: Denies: dyspnea, productive cough or non-productive cough GI: Denies: abdominal pain, nausea or vomiting Musc: Denies: back pain, extremity pain or extremity swelling Skin/Breast: Denies: rash or pruritus Neuro: Denies: headache(s), numbness in extremities, weakness in extremities, dizziness, vertigo or confusion Baron/Lymph: Denies: easy bruising or easy bleeding PFSH ED PFSH: Medical History Attention deficit hyperactivity disorder (ADHD), predominantly hyperactive- impulsive or combined type Binge eating disorder Chronic post-traumatic stress disorder Conduct disorder, adolescent-onset type, moderate History of schizoaffective disorder Mild intellectual disabilities Nocturnal enuresis Psychiatric care Family History Mother CAD (coronary artery disease) Diabetes Sister CAD (coronary artery disease) Diabetes Denies family history of Chronic kidney disease (CKD) Cancer Social History Smoking and tobacco status: current every day smoker (1 cig/ day and vapes rest of day) cigarettes Packs smoked per day: 1 Years cigarettes smoked: 10 [ Other cigarette details: Now vaping and smoking 1 cigarette every morning] and e- cigarettes Alcohol intake: never Physical Exam Narrative: EXAM NARRATIVE: Patient makes good eye contact she appears to be in no acute distress answers questions appropriately. Const: COMMON NORMALS: no acute distress, patient oriented x3, healthy appearing and alert GENERAL APPEARANCE: cooperative and comfortable NUTRITIONAL APPEARANCE: overweight ORIENTATION/CONSCIOUSNESS: Yes awake, Yes oriented to person and Yes oriented to place HENMT: COMMON NORMALS: normocephalic, Normal nasal mucous membranes and turbinates present, moist oral mucous membranes and oropharynx normal HEAD & SCALP: normocephalic NOSE: Normal nasal mucous membranes and turbinates present Eye: COMMON NORMALS: Equal, round and reactive pupils present, EOMs intact bilaterally and conjunctivae normal CONJUNCTIVA: Yes conjunctivae normal PUPIL: Yes Equal, round and reactive pupils present Neck/C-Spine: COMMON NORMALS: full ROM and no lymphadenopathy Chest: COMMONS NORMALS: normal inspection of the chest and normal palpation of entire chest wall Resp: COMMON NORMALS: normal respiratory effort, No use of accessory muscles and clear to auscultation bilaterally AUSCULTATION: clear to auscultation bilaterally Cardio: COMMON NORMALS: regular rate, regular rhythm, No murmurs present (Cardio) and Peripheral pulses 2+ throughout RATE: regular rate RHYTHM: regular rhythm PERIPHERAL PULSES: Peripheral pulses 2+ throughout GI: COMMON NORMALS: Normal to inspection, nondistended, normoactive bowel sounds present : COMMON NORMALS: Yes no CVA tenderness BLADDER/KIDNEY EXAM: Yes no CVA tenderness Back/Pelvis: COMMON NORMALS: no CVA tenderness, thoracic and lumbar spine normal to inspection, no thoracic nor lumbar tenderness and thoraco-lumbar ROM normal Extremity: COMMON NORMALS: normal to inspection, full ROM, no calf tenderness and no pedal edema Neuro: COMMON NORMALS: patient oriented x3, moves all extremities, no focal motor deficits, no sensory deficits noted and deep tendon reflexes 2+ bilaterally SENSORIUM/ORIENTATION: Yes alert, Yes oriented to person and Yes oriented to place SPEECH: speech normal Psych: COMMON NORMALS: mental status grossly normal, Normal thought process present, cooperative, speech normal and activity/motor behavior normal SPEECH: Yes normal speech THOUGHT PROCESS: Normal thought process present Skin: COMMON NORMALS: no rashes or lesions noted, no wounds and turgor normal GENERAL SKIN EXAM: no rashes or lesions noted and turgor normal Course Reevaluation(s): Reevaluation #1: Patient continues to be stable without any arrhythmias noted. Blood pressure and other vital signs are normal. No acute changes on clinical examination. Time: 11:40 Vital Signs: Vital signs: Vital Signs Temperature 97.0 F L 08/25/22 09:01 Pulse Rate 70 08/25/22 10:50 Respiratory Rate 16 08/25/22 10:50 Blood Pressure 141/69 08/25/22 10:50 Pulse Oximetry 97 08/25/22 10:50 Oxygen Delivery Me thod 08/25/22 10:50 MDM - General Adult Medical Decision Making Patient was transported to the emergency department from her group living situation after a miss administration of medications by staff. Was given a nonlethal dose of buspirone at 5 mg, sertraline 100 mg oxybutynin 10 mg baclofen 20 mg omeprazole as well as metoprolol. She had a reassuring EKG, vital signs and a clinical examination. No evidence at this time after a 3-hour postingestion stay in the emergency department of any concerning effects. She is stable to be discharged back to her long-term situation with continued monitoring and returning to the emergency department as indicated. Medical Records I reviewed the patient's medical records. EKG Data EKG 1: I personally reviewed and interpreted this EKG as follows: Interpretation: Contemporaneous review of her EKG reveals a ventricular rate of 70 bpm consistent with sinus rhythm. She has normal VT interval, QRS duration, QTc interval. Has normal axis. She has no acute ST-T wave changes noted at this time other than repolarization changes. Discharge Plan Discharge Patient Disposition: Home Clinical Impression: Medication administered in error Condition: Stable Prescriptions: No Action benzonatate [Tessalon Perles] 100 mg capsule 100 mg PO TID PRN (Reason: cough) 30 Days Qty: 90 3RF rosuvastatin 10 mg tablet 10 mg PO DAILY bismuth subsalicylate [Pepto-Bismol] 262 mg/15 mL suspension 262 mg PO DAILY PRN (Reason: UPSET STOMACH) acetaminophen [Tylenol Extra Strength] 500 mg tablet 500 mg PO Q6H PRN (Reason: Pain) cetirizine [Zyrtec] 10 mg tablet 10 mg PO DAILY PRN (Reason: Allergy Symptoms) lactulose 10 gram/15 mL (15 mL) solution 30 ml PO DAILY PRN (Reason: Constipation) levothyroxine [Synthroid] 112 mcg tablet 112 mcg PO DAILY@0700 omeprazole 20 mg capsule,delayed release(DR/EC) 20 mg PO DAILY albuterol sulfate 90 mcg/actuation HFA aerosol inhaler 2 puff inhalation Q6H PRN (Reason: shortness of breath or wheezing) 30 Days Qty: 8.5 2RF fluticasone propionate 50 mcg/actuation spray,suspension 2 spray intranasal DAILY PRN (Reason: nasal congestion) Rx Instructions: administer into each nostril quetiapine [Seroquel] 100 mg tablet 100 mg PO .7:30 pm Qty: 90 2RF Rx Instructions: Take one tablet at 7:30 pm desmopressin 0.2 mg tablet 0.4 mg PO .7:30 pm Qty: 180 2RF Rx Instructions: Take two tablets at 7:30 pm topiramate [Topamax] 25 mg tablet 25 mg PO .9 pm Qty: 90 2RF Rx Instructions: Take one tablet at 9 pm bupropion HCl [Wellbutrin XL] 300 mg tablet extended release 24 hr 300 mg PO QAM Qty: 30 3RF Rx Instructions: Take one tablet every morning quetiapine [Seroquel] 25 mg tablet 25 mg PO BID PRN (Reason: anxiety/agitation) Qty: 60 3RF Rx Instructions: Take one tablet twice per day as needed for anxiety/agitation docusate sodium [Colace] 100 mg Capsule 100 mg PO BID@08,20 fluocinonide 0.05 % solution See Rx Instructions .ROUTE .COMPLEX PRN Rx Instructions: APPLY 10-15 DROPS TO SCALY LESIONS ON THE SCALP DAILY NEEDED PRN; clindamycin phosphate 1 % gel See Rx Instructions .ROUTE .COMPLEX PRN Rx Instructions: APPLY TOPICALLY TO FACE AND TRUNK ONCE DAILY DIRECTED. PRN; albuterol sulfate 90 mcg/actuation HFA aerosol inhaler 2 inh inhalation Q4H PRN (Reason: shortness of breath or wheezing) Qty: 8.5 0RF ondansetron 4 mg tablet,disintegrating 4 mg PO Q8H PRN (Reason: nausea and vomiting) Qty: 7 0RF multivitamin Tablet 1 tab PO DAILY@08 ibuprofen 800 mg Tablet 800 mg PO Q6H PRN (Reason: Pain) amlodipine 10 mg tablet 10 mg PO DAILY Qty: 30 0RF lisinopril-hydrochlorothiazide 10-12.5 mg tablet 1 tab PO BID Qty: 0 0RF Discharge Orders: Discharge ED (Routine); Ordered 08/25/22 Ordered By: Poli Wong Referrals: Rama Moore FNP [Primary Care Provider] - Discharge Diet: Usual diet Discharge Activity: Resume usual activity Patient Instructions: Opioid Safety, Pain Management Activity Restrictions/Additional Instructions: Resume usual medications starting with this evening medication dose. If she you have any concerns about behavior, or other changes in her condition return to the emergency department immediately for reevaluation. Coding Level of Care Code ED Machine Presser for Cong Fwd Exam Comprehensive
--- NOTE | 2022-08-25 10:04 | ECG_ITS ---
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 Measurements Intervals [place] Rate: 70 P: 40 GA: 149 QRS: 52 QRSD: 92 T: 54 QT: 370 QTc: 402 Interpretive Statements SINUS RHYTHM ST ELEVATION, PROBABLY EARLY REPOLARIZATION [ST ELEVATION WITH NORMALLY INFLECTED T-WAVE] Compared to ECG 12/25/2020 16:47:24 ST (T wave) deviation now present Early repolarization now present Sinus tachycardia no longer present Short GA interval no longer present T-wave abnormality no longer present Electronically Signed On 08-25-2022 20:25:04 DRILL PRESS TENDER by Portillo Rueda M.D. [id number]
[2022-08-25 10:50] VITALS: BP 141/69; PULSE 70; RESP 16; O2SAT 97
[2022-08-25 11:51] VITALS: BP 136/61; PULSE 67; RESP 16; O2SAT 99
== END 2022-08-25 11:53 | disposition home or self-care (01) ==
PROVIDERS: Emergency Provider Emergency Medicine; PCP Nurse Practitioner Family
DX: T43.591A Poisoning by other antipsychotics and neuroleptics, accidental (unintentional), initial encounter (principal); T43.221A Poisoning by selective serotonin reuptake inhibitors, accidental (unintentional), initial encounter; T44.3X1A Poisoning by other parasympatholytics [anticholinergics and antimuscarinics] and spasmolytics, accidental (unintentional), initial encounter; T42.8X1A Poisoning by antiparkinsonism drugs and other central muscle-tone depressants, accidental (unintentional), initial encounter; T47.1X1A Poisoning by other antacids and anti-gastric-secretion drugs, accidental (unintentional), initial encounter; T44.7X1A Poisoning by beta-adrenoreceptor antagonists, accidental (unintentional), initial encounter; F17.210 Nicotine dependence, cigarettes, uncomplicated
CPT/HCPCS: 93005; 99283

== ENCOUNTER 2022-10-14 06:17 | Outpatient (CLI) | payer MEDICARE, MEDICAID, SELFPAY | END 2022-10-14 06:18 | disposition home or self-care (01) | LOC: SLEEP 10-15 06:19 | PROVIDERS: PCP Nurse Practitioner Family; Visit Provider Nurse Practitioner Family | DX: G47.10 Hypersomnia, unspecified (principal); R06.83 Snoring; R53.83 Other fatigue; G47.33 Obstructive sleep apnea (adult) (pediatric) | CPT/HCPCS: 95810 ==

== ENCOUNTER 2022-12-19 20:00 | Outpatient (CLI) | payer MEDICARE, MEDICAID, SELFPAY | END 2022-12-19 20:01 | disposition home or self-care (01) | PROVIDERS: PCP Nurse Practitioner Family; Visit Provider Nurse Practitioner Family | DX: G47.33 Obstructive sleep apnea (adult) (pediatric) (principal) | CPT/HCPCS: 95811 ==

== ENCOUNTER 2022-12-21 14:44 | Emergency (ER) | payer MEDICARE, MEDICAID, SELFPAY ==
[2022-12-21 14:57] VITALS: BP 135/80; PULSE 96; RESP 16; TEMP 36.7; O2SAT 97; BMI 51.2
--- NOTE | 2022-12-21 15:01 | ECG_ITS ---
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 Measurements Intervals [place] Rate: 98 P: 8 NV: 138 QRS: 15 QRSD: 88 T: 0 QT: 320 QTc: 410 Interpretive Statements SINUS RHYTHM POSSIBLE LEFT ATRIAL ENLARGEMENT [-0.1mV P-WAVE IN V1/V2] LOW QRS VOLTAGE IN EXTREMITY LEADS [QRS DEFLECTION < 0.5 mV IN LIMB LEADS] Compared to ECG 08/25/2022 10:04:34 Low QRS voltage now present ST (T wave) deviation no longer present Early repolarization no longer present Electronically Signed On 12-21-2022 16:45:06 CDT by Portillo Rueda M.D. [id number]
== END 2022-12-21 15:16 | disposition left against medical advice (07) ==
PROVIDERS: Emergency Provider Family Medicine; PCP Nurse Practitioner Family
DX: Z53.21 Procedure and treatment not carried out due to patient leaving prior to being seen by health care provider (principal)
CPT/HCPCS: 93005

== ENCOUNTER 2023-10-01 12:32 | Outpatient (RCR) | payer MEDICARE, MEDICAID, SELFPAY | END 2023-10-23 23:59 | disposition home or self-care (01) | LOC: SPT 12:32 | PROVIDERS: PCP Nurse Practitioner Family; Visit Provider Nurse Practitioner Family | DX: M54.50 Low back pain, unspecified (principal); G89.29 Other chronic pain | CPT/HCPCS: 97161 ==

== ENCOUNTER 2023-10-24 06:00 | Outpatient (RCR) | payer MEDICARE, MEDICAID, SELFPAY | END 2023-11-23 23:59 | disposition home or self-care (01) | LOC: SPT 06:00 | PROVIDERS: PCP Nurse Practitioner Family; Visit Provider Nurse Practitioner Family | DX: M54.50 Low back pain, unspecified (principal); G89.29 Other chronic pain | CPT/HCPCS: 97110 ==

== ENCOUNTER 2023-12-12 08:50 | Outpatient (CLI) | payer MEDICARE, MEDICAID, SELFPAY ==
--- NOTE | 2023-12-12 08:58 | FL_ITS ---
WS: [email or web address] Exam: FL barium swallow [id number] Date/Time of Exam: 12/12/2023 9:16 AM Reason For Exam: DYSPHAGIA Fluoroscopy time: 2min [id number] minutes # of spot films: Oropharyngeal phase of swallowing was normal. The esophagus is smooth in contour with normal motility . No esophageal stricture or mass was seen. No hiatal hernia or gastroesophageal reflux observed. The esophagus is not displaced. IMPRESSION: 1. Normal esophagram.
== END 2023-12-12 08:51 | disposition home or self-care (01) ==
LOC: RAD 08:51
PROVIDERS: PCP Nurse Practitioner Family; Visit Provider Nurse Practitioner Family
DX: R13.10 Dysphagia, unspecified (principal)
CPT/HCPCS: 74220

== ENCOUNTER 2024-01-08 14:42 | Outpatient (CLI) | payer MEDICARE, MEDICAID, SELFPAY ==
--- NOTE | 2024-01-08 15:15 | US_ITS ---
WS: [id number] ULTRASOUND SOFT TISSUES cervical chains. HISTORY: Otalgia Bilateral COMPARISON: None available. TECHNIQUE: 2-D and color Doppler imaging is submitted. Ultrasound is performed along the cervical chains. Small benign-appearing lymph nodes are identified. Normal fatty gil and normal cortical thickness. No increased vascularity. US/US soft tissue head neck [id number] IMPRESSION: Normal bilateral cervical chain lymph nodes.
--- NOTE | 2024-01-08 15:25 | XR_ITS ---
WS: [id number] Cervical spine, 5 views including flexion, extension and neutral lateral position, 01/08/2024 Clinical Data: OTALGIA,BILATERAL Comparison: None. Findings: No compression fractures are seen. The disc heights are normal. There is no prevertebral so ft tissue swelling. No limitation of motion or subluxation is seen on flexion or extension. The odont oid is unremarkable. The soft tissues of the neck and the lung apices are normal. XR/XR cervical spine 4-5V [id number] Impression: 1. Negative cervical spine. 2. No limitation of motion or subluxation on flexion or extension.
--- NOTE | 2024-01-08 15:25 | XR_ITS ---
WS: [email or web address] Mandible series, 4 views, 01/08/2024 Clinical Data: OTALGIA,BILATERAL Comparison: None. Findings: The mandible is intact without fracture or erosion. The maxilla is normal. The patient's teeth are in good alignment. The mandibular ramus and condyle show no abnormalities. There is a decorative ring i n the patient's nose. The soft tissues are normal. XR/XR mandible <4V [id number] Impression: Negative mandible series.
== END 2024-01-08 14:43 | disposition home or self-care (01) ==
LOC: RAD 14:42
PROVIDERS: PCP Nurse Practitioner Family; Visit Provider Otolaryngology
DX: H92.03 Otalgia, bilateral (principal)
CPT/HCPCS: 70100; 72050; 76536

== ENCOUNTER → 2024-02-20 10:43 | Outpatient (BNVA) | payer MEDICARE, MEDICAID, OTHER, SELFPAY | PROVIDERS: PCP Nurse Practitioner Family; Visit Provider Nurse Practitioner Psychiatric/Mental Health | DX: Z86.59 Personal history of other mental and behavioral disorders (principal); F91.2 Conduct disorder, adolescent-onset type; F70 Mild intellectual disabilities; F90.2 Attention-deficit hyperactivity disorder, combined type; F43.12 Post-traumatic stress disorder, chronic; Z79.899 Other long term (current) drug therapy | CPT/HCPCS: 80053; 80061; 83036; 84443 ==

== ENCOUNTER 2024-03-19 10:43 | Outpatient (CLI) | payer MEDICARE, MEDICAID, SELFPAY ==
[2024-03-19 11:43] LABS: Alanine Aminotransferase 18 U/L (0-33); Albumin Level 4.3 g/dL (3.5-5.2); Alkaline Phosphatase 107 U/L (35-105); Anion Gap 15.5 (5-19); Aspartate Amino Transferase 13 U/L (0-32); Blood Urea Nitrogen 29 mg/dL (6-20); Calcium 8.9 mg/dL (8.5-10.5); Carbon Dioxide 22 mmol/L (22-29); Chloride 105 mmol/L (98-107); Globulin 3.1 g/dL (1.3-4.6); Glomerular Filtration Rate 52.7 mL/min (90-130); Glucose 83 mg/dL (65-115); Osmolality Calculated 291 mOsm/kg (285-295); Potassium 4.5 mmol/L (3.5-5.1); Sodium 138 mmol/L (136-145); Total Bilirubin 0.3 mg/dL (0.15-1.2); Total Protein 7.4 g/dL (6.6-8.7)
== END 2024-03-19 10:44 | disposition home or self-care (01) ==
LOC: LAB 10:46
PROVIDERS: PCP Nurse Practitioner Family; Visit Provider Nurse Practitioner Family
DX: R94.4 Abnormal results of kidney function studies (principal)
CPT/HCPCS: 36415; 80053

== ENCOUNTER 2024-11-01 13:59 | Outpatient (CLI) | payer MEDICARE, MEDICAID, SELFPAY ==
--- NOTE | 2024-11-01 14:06 | US_ITS ---
WS: [email or web address] RENAL ULTRASOUND HISTORY: STAGE 32 CHRONIC KIDNEY DZ COMPARISON: 06/11/2006 TECHNIQUE: 2-D and color Doppler imaging of the kidney submitted. Right kidney: 9.5 cm x 4.1 cm x 5.1 cm. Cortex: 1.7 cm Normal echogenicity with no hydronephrosis or mass. Left kidney: 9.3 cm x 4.8 cm x 4.6 cm. Cortex: 1.5 cm Normal echogenicity with no hydronephrosis or mass. Aorta: Normal. Urinary Bladder: Normal distention. US/US renal BI* [id number] IMPRESSION: Normal renal ultrasound.
[2024-11-01 15:06] LABS: Albumin Level 4.4 g/dL (3.5-5.2); Anion Gap 14.6 (5-19); Blood Urea Nitrogen 24 mg/dL (6-20); Calcium 9.4 mg/dL (8.5-10.5); Carbon Dioxide 26 mmol/L (22-29); Chloride 103 mmol/L (98-107); Glomerular Filtration Rate 47.8 mL/min (90-130); Glucose 89 mg/dL (65-115); Phosphorus 3.5 mg/dL (2.5-4.5); Potassium 4.6 mmol/L (3.5-5.1); Sodium 139 mmol/L (136-145)
== END 2024-11-01 14:00 | disposition home or self-care (01) ==
PROVIDERS: PCP Nurse Practitioner Family; Visit Provider Internal Medicine Nephrology
DX: N18.31 Chronic kidney disease, stage 3a (principal)
CPT/HCPCS: 36415; 76770; 80069

== ENCOUNTER 2024-11-01 17:53 | Outpatient (CLI) | payer MEDICARE, MEDICAID, SELFPAY ==
[2024-11-01 18:35] LABS: Creatinine Urine, Random 137 mg/dL (28-217); Microalbum Creatinine Ratio Ur 7 mg/dL (0-20); Microalbumin Random Urine 1 ug/dL (0-20)
== END 2024-11-01 17:54 | disposition home or self-care (01) ==
PROVIDERS: PCP Nurse Practitioner Family; Visit Provider Internal Medicine Nephrology
DX: Z53.9 Procedure and treatment not carried out, unspecified reason (principal)
CPT/HCPCS: 82044

== ENCOUNTER → 2025-02-23 14:12 | Outpatient (BNVA) | payer MEDICARE, MEDICAID, OTHER, SELFPAY | PROVIDERS: PCP Nurse Practitioner Family; Visit Provider Nurse Practitioner Psychiatric/Mental Health | DX: Z79.899 Other long term (current) drug therapy (principal) | CPT/HCPCS: 80061; 83036 ==

== ENCOUNTER 2025-04-13 08:12 | Outpatient (CLI) | payer MEDICARE, MEDICAID, SELFPAY ==
[2025-04-13 09:07] LABS: Hematocrit 32.9 % (36-47); Hemoglobin 10.50 g/dL (11.27-16.99); Mean Corpuscular HGB Conc 31.9 g/dL (30-55); Mean Corpuscular Hemoglobin 31.1 pg (27-33); Mean Corpuscular Volume 97.3 fl (85-98); Nucleated Red Blood Cells % 0 %; Platelet Count 366 10^3/cmm (157-399); Red Blood Count 3.38 10^6/uL (3.85-5.65); White Blood Count 8.95 10^3/uL (3.29-11.43)
[2025-04-13 09:26] LABS: Calcium 9.0 mg/dL (8.5-10.5)
[2025-04-13 09:33] LABS: Creatinine Urine, Random 137 mg/dL (28-217); Microalbum Creatinine Ratio Ur 22 mg/dL (0-20)
[2025-04-13 09:49] LABS: Albumin Level 4.3 g/dL (3.5-5.2); Anion Gap 15.6 (5-19); Blood Urea Nitrogen 24 mg/dL (6-20); Calcium 9.0 mg/dL (8.5-10.5); Carbon Dioxide 25 mmol/L (22-29); Chloride 104 mmol/L (98-107); Glucose 120 mg/dL (65-115); Potassium 4.6 mmol/L (3.5-5.1); Sodium 140 mmol/L (136-145)
== END 2025-04-13 08:13 | disposition home or self-care (01) ==
PROVIDERS: PCP Nurse Practitioner Family; Visit Provider Internal Medicine Nephrology
DX: N18.31 Chronic kidney disease, stage 3a (principal)
CPT/HCPCS: 36415; 80069; 82044; 82306; 82310; 83970; 85025